=== PATIENT | female | born 1960 | race American Indian/Alaskan Native ===

== ENCOUNTER 2017-10-29 12:01 | Inpatient (IN) | payer OTHER ==
[2017-10-29] MEDS ORDERED: NORCO 5/325 PO ONE (16:14)
--- NOTE | 2017-10-29 16:17 | Emergency Department Report ---
ED Chest Pain HPI - General Chief Complaint: Chest Pain Stated Complaint: CHEST PAIN Time Seen by Provider: 10/29/17 15:42 Source: patient, EMS Mode of arrival: Stretcher Limitations: No Limitations - History of Present Illness Initial Comments: 57-year-old female presents to the emergency department via EMS from home with 2 complaints. First, the patient has been having a one-week history of some midsternal chest pain. It is associated with shortness of breath but she denies any nausea, vomiting, back pain or diaphoresis. The pain increased last night and she was at a 10 out of 10 in intensity when EMS got to her. She was given a full dose aspirin and a sublingual nitroglycerin that brought the pain down to about 8 out of 10. Secondly, the patient complains of a 2-3 day history of some right-sided "numbness" that sounds by her description more of paresthesias but a tingling sensation but it is different from the left side. She denies any headache, vision change, slurred speech. She has a past medical history of insulin-dependent diabetes and hypertension. She has a tobacco smoker but denies any illicit drug use. She thinks that she may have had a stress test a few years in the past. She does not have a deaf and hard of hearing teacher. Her primary care physician is Dr. Ta. - Related Data Allergies Allergy/AdvReac Type Severity Reaction Status Date / Time No Known Allergies Allergy Unverified 10/29/17 20:25 Heart Score - HEART Score History: Moderately suspicious EKG: Normal Age: 45-65 Risk factors: > 3 risk factors or hx of atherosclerotic disease Troponin: < normal limit HEART Score: 4 - Critical Actions Critical Actions: 4-6 pts:12-16.6% risk of adverse cardiac event. Should be admitted ED Review of Systems ROS: Stated complaint: CHEST PAIN Other details as noted in HPI Comment: All other systems reviewed and negative Constitutional: denies: chills, fever Eyes: denies: eye pain, eye discharge, vision change ENT: denies: ear pain, throat pain Respiratory: shortness of breath. denies: cough Cardiovascular: chest pain, palpitations Gastrointestinal: denies: abdominal pain, nausea, diarrhea Genitourinary: denies: urgency, dysuria, discharge Musculoskeletal: denies: back pain, joint swelling, arthralgia Skin: denies: rash, lesions Neurological: numbness, paresthesias. denies: headache, weakness ED Past Medical Hx - Past Medical History Previous Medical History?: Yes Hx Hypertension: Yes Hx Diabetes: Yes - Social History Smoking Status: Current Every Day Smoker Substance Use Type: None ED Physical Exam - General Limitations: No Limitations - Other Other exam information: GENERAL: The patient is well-developed well-nourished. HENT: Normocephalic. Atraumatic. Patient has moist mucous membranes. EYES: Extraocular motions are intact. Pupils equal reactive to light bilaterally. No nystagmus. NECK: Supple. Trachea is midline. CHEST/LUNGS: Clear to auscultation. There is no respiratory distress noted. HEART/CARDIOVASCULAR: Regular. There is no tachycardia. There is no murmur. ABDOMEN: Abdomen is soft, nontender. Patient has normal bowel sounds. There is no abdominal distention. SKIN: Skin is warm and dry. NEURO: The patient is awake, alert, and oriented. The patient is cooperative. No motor deficits. The patient has some subjective decreased sensation to the right arm and right leg when compared to the left. The patient has normal speech. Cranial nerves II through XII grossly intact. No pronator drift. No dysmetria. MUSCULOSKELETAL: There is no tenderness or deformity. There is no limitation range of motion. There is no evidence of acute injury. ED Course Vital Signs 10/29/17 10/29/17 10/29/17 13:04 16:00 16:15 Temperature 97.5 F L Pulse Rate 66 64 64 Respiratory 16 12 13 Rate Blood Pressure 150/76 143/64 O2 Sat by Pulse 98 99 98 Oximetry 10/29/17 10/29/17 10/29/17 16:30 16:46 17:00 Temperature Pulse Rate 62 60 58 L Respiratory 15 15 14 Rate Blood Pressure 143/64 144/61 143/64 O2 Sat by Pulse 98 99 98 Oximetry 10/29/17 10/29/17 10/29/17 17:28 17:30 17:38 Temperature Pulse Rate 60 56 L Respiratory 14 14 20 Rate Blood Pressure 143/68 152/68 O2 Sat by Pulse 98 98 Oximetry 10/29/17 10/29/17 10/29/17 17:46 18:00 18:16 Temperature Pulse Rate Respiratory 12 12 11 L Rate Blood Pressure 143/68 143/68 193/91 O2 Sat by Pulse 98 98 96 Oximetry 10/29/17 10/29/17 10/29/17 18:30 18:46 19:00 Temperature Pulse Rate Respiratory 11 L 11 L 11 L Rate Blood Pressure 145/84 156/87 171/99 O2 Sat by Pulse 97 97 96 Oximetry 10/29/17 10/29/17 10/29/17 19:16 19:30 19:46 Temperature Pulse Rate Respiratory 15 12 13 Rate Blood Pressure 173/99 146/61 156/78 O2 Sat by Pulse 99 99 98 Oximetry 10/29/17 20:00 Temperature Pulse Rate Respiratory 14 Rate Blood Pressure 158/74 O2 Sat by Pulse 98 Oximetry SANJANA score - Sanjana Score Age > 65: (0) No Aspirin use within the Past 7 Days: (1) Yes 3 or more CAD Risk Factors: (1) Yes 2 or more Angina events in past 24 hrs: (1) Yes Known CAD with more than 50% Stenosis: (0) No Elevated Cardiac Markers: (0) No ST Deviation Greater than 0.5mm: (0) No SANJANA Score: 3 ED Medical Decision Making - Lab Data Result diagrams: 10/29/17 16:19 10/29/17 16:19 - EKG Data -: EKG Interpreted by Me EKG shows normal: sinus rhythm, axis, intervals, QRS complexes, ST-T waves Rate: normal - EKG Data When compared to previous EKG there are: previous EKG unavailable Interpretation: normal EKG - Radiology Data Radiology results: report reviewed, image reviewed interpreted by me: Chest x-ray does not show any acute process. There are no pleural effusions, obvious pneumonia and there is no pneumothorax. PROCEDURE: CT HEAD/BRAIN WO CON TECHNIQUE: Computerized tomography of the head was performed without contrast material. HISTORY: right sided numbness COMPARISON: No prior studies are available for comparison. FINDINGS: There is no CT evidence of intracranial mass, hemorrhage, acute territorial infarction, or hydrocephalus. The intracranial arteries are symmetric in density. Calvarium is intact. Visualized paranasal sinuses and mastoids are aerated. IMPRESSION: No CT evidence of acute abnormality Transcribed By: [facility] Dictated By: BONNY MCINTOSH M.D. Electronically Authenticated By: BONNY MCINTOSH M.D. Signed Date/Time: 10/29/17 227 - Medical Decision Making The patient's chest pain: EKG is normal without ST elevation ND, ischemia or dysrhythmia. So far the patient has negative troponins 2 and a negative d- dimer. The patient does have the risk factors of tobacco use, hypertension and diabetes and her blood sugar is elevated. She was given some IV insulin. There is no significant elevation in the anion gap and she has low suspicion for DKA. However it has been many years patient has had a stress test. She has a heart score of 4 and a SANJANA score of 3. Patient will be admitted to the hospital for further evaluation and most likely cardio consultation. Chest x- ray did not show any focal consolidation, pneumonia, pneumothorax or pleural effusion. Regarding the patient's right-sided numbness, I believe she is describing more of a paresthesia. However even if it was true numbness, the patient would be NIH stroke scale of 1. A CT scan of the head was done without contrast that did not show any signs of any bleed, ischemia, mass, shift or any other acute process. There is no specific last known well time anyways, being at least 2 or 3 days ago, and therefore the patient would not be a TPA candidate anyways. For both her complaints, the patient will be admitted to hospital for further evaluation and treatment was accepted for admission by the hospitalist, Dr. Fragoso. - Differential Diagnosis ND, PE, CVA, TIA, Costochondritis Critical Care Time: No Critical care attestation.: If time is entered above; I have spent that time in minutes in the direct care of this critically ill patient, excluding procedure time. ED Disposition Clinical Impression: Acute chest pain, Right sided numbness, Hyperglycemia Hypertension Qualifiers: Hypertension type: essential hypertension Qualified Code(s): I10 - Essential ( primary) hypertension Disposition: OP ADMIT IP TO THIS HOSP Is pt being admited?: Yes Condition: Fair Instructions: Chest Pain (ED), Hypertension (ED) Referrals: PRIMARY CARE,MD [Primary Care Provider] - 3-5 Days Time of Disposition: 21:15 - Assessment Assessment Interval: Baseline - Level of Consciousness 1a. Level of Consciousness: alert/keenly responsive - LOC Questions 1b. LOC Questions: answers both correctly - LOC Command 1c. LOC Commands: performs tasks correctly - Best Gaze 2. Best Gaze: normal - Visual 3. Visual: no visual loss - Facial Palsy 4. Facial Palsy: normal symmetrical movement - Motor Arm 5b. Motor Arm Right: no drift 5a. Motor Arm Left: no drift - Motor Leg 6a. Motor Leg Left: no drift 6b. Motor Leg Right: no drift - Limb Ataxia 7. Limb Ataxia: absent - Sensory 8. Sensory: mild/moderate sensory loss - Best Language 9. Best Language: no aphasia - Dysarthria 10. Dysarthria: normal - Extinction and Inattention 11. Extinction/Inattention: no abnormality - Scoring Total Score: 1 Stroke Severity: Minor Stroke
[2017-10-29 16:54] LABS: INR 1.09 (0.87-1.13); Partial Thromboplastin Time 27.5 Sec. (24.2-36.6)
[2017-10-29 16:59] LABS: Basophils % (Auto) 0.6 % (0.0-1.8); Eosinophils # (Auto) 0.1 K/mm3 (0.0-0.4); Eosinophils % (Auto) 1.5 % (0.0-4.3); Hematocrit 39.3 % (30.3-42.9); Hemoglobin 12.9 gm/dl (10.1-14.3); Lymphocytes # (Auto) 1.5 K/mm3 (1.2-5.4); Mean Corpuscular HGB Conc 33 % (30-34); Mean Corpuscular Hemoglobin 26 pg (28-32); Mean Corpuscular Volume 80 fl (79-97); Monocytes # (Auto) 0.2 K/mm3 (0.0-0.8); Monocytes % (Auto) 5.2 % (0.0-7.3); Platelet Count 163 K/mm3 (140-440)
[2017-10-29 17:15] LABS: BUN/Creatinine Ratio 16; Blood Urea Nitrogen 11 mg/dL (7-17); Calcium 8.9 mg/dL (8.4-10.2); Hemolysis Index 5
[2017-10-29] MEDS ORDERED: HumuLIN R IV ONE (17:16)
--- NOTE | 2017-10-29 18:59 | Cat Scan Report ---
FINAL REPORT PROCEDURE: CT HEAD/BRAIN WO CON TECHNIQUE: Computerized tomography of the head was performed without contrast material. HISTORY: right sided numbness COMPARISON: No prior studies are available for comparison. FINDINGS: There is no CT evidence of intracranial mass, hemorrhage, acute territorial infarction, or hydrocephalus. The intracranial arteries are symmetric in density. Calvarium is intact. Visualized paranasal sinuses and mastoids are aerated. IMPRESSION: No CT evidence of acute abnormality
[2017-10-29] MEDS ORDERED: MORPHINE ONE (20:30)
[2017-10-29] MEDS ORDERED: MORPHINE IV ONE (20:30)
--- NOTE | 2017-10-29 20:32 | XRay Report ---
FINAL REPORT EXAM: XR CHEST 1V AP HISTORY: Chest Pain TECHNIQUE: AP portable view of the chest. PRIORS: None. FINDINGS: The cardiomediastinal silhouette appears normal. The lungs are clear. The bones and soft tissues are unremarkable. IMPRESSION: No evidence of acute cardiopulmonary disease.
[2017-10-29] MEDS ORDERED: MORPHINE IV PRN (21:45)
[2017-10-29] MEDS ORDERED: NITROSTAT SL PRN (21:47)
[2017-10-29] MEDS ORDERED: TYLENOL PO PRN (21:48)
[2017-10-29] MEDS ORDERED: ZOFRAN IV PRN (21:48)
[2017-10-29] MEDS ORDERED: D50W (25GM) Syringe IV PRN (23:19)
[2017-10-29] MEDS: NITRO-BID 2% TP SCH (23:51)
[2017-10-29] MEDS: HEPARIN SUB-Q SCH (23:58)
[2017-10-30] MEDS ORDERED: HumaLOG SUB-Q SCH
[2017-10-30 01:19] LABS: Creatine Kinase MB < 1.0 ng/mL (0.0-4.0)
[2017-10-30] MEDS: NITRO-BID 2% TP SCH ×4 (05:37→18:33)
[2017-10-30 06:59] LABS: Creatine Kinase MB < 1.0 ng/mL (0.0-4.0)
--- NOTE | 2017-10-30 07:26 | History and Physical Report ---
CHIEF COMPLAINT: Chest pain. HISTORY OF PRESENT ILLNESS: The patient is a 57-year-old female brought by emergency medical service with complaint of chest pain. The patient stated pain has been going on for about 1 week and is located in the midsternal area and associated with shortness of breath, nausea with no vomiting. There is also associated history of dizziness. The patient described pain as a level of 10/10 in intensity and was given aspirin and sublingual nitroglycerin that have eased the pain. There is also history of right-sided numbness. There is no history of headache. No history of blurry vision or slurred speech and the patient was seen here in the Emergency Room. PAST MEDICAL HISTORY: Pertinent for hypertension, diabetes mellitus. PAST SURGICAL HISTORY: Unremarkable. FAMILY HISTORY: There is family history of coronary artery disease in the mother. SOCIAL HISTORY: The patient smokes cigarettes, does not drink alcohol and does not use illicit drugs. MEDICATIONS: The patient is on an insulin NPH/regular insulin 70/30 five units subcutaneously twice daily. ALLERGIES: There are no known drug allergies. REVIEW OF SYSTEMS: CONSTITUTIONAL: There is no fever, no chills, no diaphoresis. HEENT: There is no headache or sore throat. CARDIOVASCULAR SYSTEM: Chest pain is present. There is no orthopnea. RESPIRATORY: There is shortness of breath with no cough. GASTROINTESTINAL SYSTEM: There is nausea, but no vomiting, no abdominal pain, diarrhea or constipation. NEUROLOGICAL SYSTEM: Dizziness present. No altered mental status. MUSCULOSKELETAL SYSTEM: There is no joint pain or swelling. DERMATOLOGICAL SYSTEM: There is no skin rash or itching. GENITOURINARY SYSTEM: There is no dysuria, hematuria or flank pain. Rest of system review is normal. PHYSICAL EXAMINATION: GENERAL: At the time of exam, the patient was found to be alert, oriented x 3 and not in acute distress. VITAL SIGNS: At the initial time of presentation show temperature of 97.5 degrees Fahrenheit, pulse of 66, respirations 16, blood pressure 150/76, O2 sat of 98% on room air. HEENT: Showed pupils to be equal, round, reactive to light and accommodation. Extraocular muscles are intact. NECK: Supple with no JVD or carotid bruit. CARDIOVASCULAR SYSTEM: Showed normal first and second heart sounds with no gallop or murmur. RESPIRATORY SYSTEM: Show good air entry on both sides of the lungs with no abnormal breath sounds. GASTROINTESTINAL SYSTEM: Show abdomen to be full, soft, nontender with no organomegaly or rigidity. NEUROLOGIC: Shows no focal deficit. MUSCULOSKELETAL: Show no joint swelling or tenderness. DERMATOLOGICAL: Show no skin rash. GENITOURINARY: Showing no costovertebral angle tenderness. PERTINENT LABORATORY AND IMAGING STUDIES: The patient had a CT of the head done that shows no acute abnormality. The patient had chest x-ray done that shows no evidence of any active cardiopulmonary disease. The patient's lab results show CBC with low white count of 3.6. Normal hemoglobin, normal hematocrit with CBC differential showing high lymphocyte count of 41%. Coagulation studies came back unremarkable. The patient's chemistry show a high glucose level of 380 and troponin level came back normal. DIAGNOSES: 1. Chest pain. 2. Diabetes mellitus. PLAN: 1. The patient will be admitted to telemetry. 2. The patient will remain n.p.o. and we will have Lexiscan stress test done this morning to rule out myocardial infarction. 3. The patient will have cardiac enzymes involving troponin, total CK, and CK-MB checked every 6 hours x 2 more levels and will be on oxygen by nasal cannula at 2 L per minute. 4. The patient will be on aspirin 325 mg by mouth daily and will be on morphine 2 mg IV every 5 minutes as needed for pain. The patient will also be on Zofran 4 mg IV every 8 hours for nausea and vomiting and will be on nitro paste half inch to anterior chest wall q.i.d. as well as sublingual nitroglycerin 0.4 mg every 5 minutes as needed for chest pain. The patient will also be on Tylenol 650 mg by mouth every 4 hours for fever and headache and DVT prophylaxis will be through heparin 5000 units subcutaneously every 12 hours. The patient will remain n.p.o. for stress test this morning. JOB# [id number] OCN/NTS
[2017-10-30] MEDS: HumaLOG SUB-Q SCH ×3 (08:56→18:33)
[2017-10-30] MEDS ORDERED: LEXISCAN IV ONE (09:37)
[2017-10-30] MEDS ORDERED: ASPIRIN PO SCH (10:00)
[2017-10-30] MEDS: HEPARIN SUB-Q SCH (12:26)
[2017-10-30 16:27] VITALS: BP 145/73
--- NOTE | 2017-10-30 17:52 | Discharge Summary ---
Providers - Providers Date of Admission: 10/29/17 21:37 Attending physician: ROCK QUIROGA MD Primary care physician: CARTON MAKER Hospitalization Reason for admission: chest pain Condition: Stable Pertinent studies: cardiac stress test; negative for acute ischemia Procedures: CT head negative, cardiac stress test negative for ischemia Hospital course: 57-year-old female presents to the emergency department via EMS from home with 2 complaints. First, the patient has been having a one-week history of some midsternal chest pain. It is associated with shortness of breath but she denies any nausea, vomiting, back pain or diaphoresis. The pain increased last night and she was at a 10 out of 10 in intensity when EMS got to her. She was given a full dose aspirin and a sublingual nitroglycerin that brought the pain down to about 8 out of 10. Secondly, the patient complains of a 2-3 day history of some right-sided "numbness" that sounds by her description more of paresthesias but a tingling sensation but it is different from the left side. She denies any headache, vision change, slurred speech. She has a past medical history of insulin-dependent diabetes and hypertension. She has a tobacco smoker but denies any illicit drug use. She thinks that she may have had a stress test a few years in the past. She does not have a a p mechanic. Her primary care physician is Dr. Ta. Patient is admitted to the floor and back exams are negative, CT head was normal, stress test negative. Patient denies have any focal weakness, chest pain resolved. Patient has diabetes mellitus and was given insulin. Patient has elevated blood pressure and was given amlodipine. Patient advised to follow- up with her PCP for the management of diabetes and high blood pressure. Patient is hemodynamically stable at the time of discharge. Appropriate medication scripts were given. Patient's questions and concerns were addressed at the bedside. Disposition: -01 TO HOME OR SELFCARE Time spent for discharge: 32 minutes - Discharge Diagnoses (1) Acute chest pain Status: Acute (2) Hyperglycemia Status: Acute Core Measure Documentation - Palliative Care Palliative Care/ Comfort Measures: Not Applicable - Core Measures Any of the following diagnoses?: none Exam - Physical Exam Narrative exam: Not in cardiopulmonary distress. The patient is obese. Vital signs as documented. Head exam is unremarkable. No scleral icterus . Neck is without jugular venous distension, thyromegaly, or carotid bruits. Lungs are clear to auscultation. Cardiac exam reveals regular rate and Rhythm. First and second heart sounds normal. No murmurs, rubs or gallops. Abdominal exam reveals normal bowel sounds, no masses, no organomegaly and no aortic enlargement. Extremities are nonedematous and both femoral and pedal pulses are normal. [employer]: Alert and oriented 3. No focal weakness. - Constitutional Vitals: Temp Pulse Resp BP Pulse Ox 98.4 F 61 20 145/73 94 10/30/17 16:26 10/30/17 16:26 10/30/17 16:26 10/30/17 16:26 10/30/17 16:26 Plan Activity: no restrictions Weight Bearing Status: Full Weight Bearing Diet: low cholesterol, low salt, diabetic Additional Instructions: F/U at [facility] in 1-2 weeks Follow up with: PRIMARY CARE, [Primary Care Provider] - 3-5 Days Forms: Work/School Release Form Prescriptions: amLODIPine [Norvasc] 5 mg PO DAILY #30 tab Insulin NPH Hum/Reg Insulin Hm [HumuLIN 70-30 Vial] 5 unit SQ BID #1 vial
--- NOTE | 2017-10-30 23:34 | Treadmill Report ---
THALLIUM STRESS TEST LEFT VENTRICLE: Left ventricular chamber size is within normal spread. Perfusion study demonstrates homogeneous uptake of the tracer in all segments, no significant perfusion defects identified. Gated analysis demonstrates normal left ventricular systolic function, ejection fraction of 65%. CONCLUSION: Normal myocardial perfusion study. JOB# [id number] CA/NTS
== END 2017-10-30 18:30 | disposition home or self-care (01) | DRG 313 ==
LOC: ED 12:01 → 4A 21:37
PROVIDERS: ADMIT Internal Medicine; ATTEND Internal Medicine
DX: R07.9 Chest pain, unspecified (principal); E11.65 Type 2 diabetes mellitus with hyperglycemia; I10 Essential (primary) hypertension; F17.210 Nicotine dependence, cigarettes, uncomplicated; Z82.49 Family history of ischemic heart disease and other diseases of the circulatory system
CPT/HCPCS: 36415; 70450; 71045; 78452; 80048; 82550; 82553; 82962; 84484; 85025; 85379; 85610; 85730; 93005; 93010; 93017; 96374; 96375; 99406; A9502; J1644; J1815; J2270; J2785